=== PATIENT | male | born 1960 ===

== ENCOUNTER 2024-08-20 07:28 | Outpatient (CLI) | payer MEDICARE, MEDICAID ==
[2024-08-20] VITALS (21 sets, daily range): BP systolic 113–131; BP diastolic 71–91; PULSE 79–91
== END 2024-08-20 23:59 | disposition home or self-care (01) ==
LOC: CARD DIAG 07:28
PROVIDERS: ATTEND Internal Medicine Interventional Cardiology
DX: R55 Syncope and collapse (principal)
CPT/HCPCS: 93660